=== PATIENT | male | born 2000 | race Caucasian/White ===

== ENCOUNTER 2024-07-17 09:34 | Emergency (ER) | payer BC ==
[~2024-07-17] VITALS: Ht 157.5 cm; Wt 49.9 kg
[2024-07-17 10:19] VITALS: BP 145/84; TEMP 97.6; O2SAT 98
== END 2024-07-17 10:29 | disposition home or self-care (01) ==
LOC: ER 09:59
DX: R10.9 Unspecified abdominal pain (principal); Z53.21 Procedure and treatment not carried out due to patient leaving prior to being seen by health care provider